=== PATIENT | female | born 1985 | race Hispanic/Latino ===

== ENCOUNTER 2016-12-03 16:56 | Emergency (ER) | payer OTHER, MEDICARE ==
[~2016-12-03] VITALS: Ht 162.6 cm; Wt 81.6 kg
[~2016-12-03 16:56] MED LIST: BENADRYL ALLERG25 MG; BIOTIN1000 MCG PO; CILOXAN5 ML OPH; CYCLOBENZAPRINE10 M1 PO; LIDOCAINE HCL V15 ML PO; NORCO 325 MG-51 TAB PO; NORFLEX100 MG PO; PERCOCET 5-3251 EACH PO; PREDNISONE10 MG PO; TRAMADOL HCL50 M1 PO; ULTRAM50 M1 PO; [UNRECOGNIZED DRUG - OTHER] PO
--- NOTE | 2016-12-03 17:43 | ED GENERAL ADULT ---
History of Present Illness General Chief Complaint: General Adult Stated Complaint: SENT BY CLINIC FOR EKG "MY HEART RATE IS FAST" Source: patient, old records Exam Limitations: no limitations Vital Signs & Intake/Output Vital Signs & Intake/Output Vital Signs Date Time Temp Pulse Resp B/P Pulse O2 O2 Flow FiO2 Ox Delivery Rate 12/03 1951 101.0 111 20 103/62 96 Room Air 12/03 1839 Room Air Room Air 12/03 1754 102.6 128 22 12/03 1709 100.4 133 20 124/90 97 Room Air ED Intake and Output 12/04 0000 12/03 1200 Intake Total 1000 Output Total Balance 1000 Intake, IV 1000 Patient 180 lb Weight Allergies Coded Allergies: ibuprofen (Intermediate, HIVES 05/28/16) Reconcile Medications Benzonatate 200 MG CAPSULE 1 CAP PO TID PRN cough Citalopram Hydrobromide (Citalopram HBr) 10 MG TABLET 1 TAB PO DAILY MENTAL HEALTH (Reported) Oseltamivir Phosphate (Tamiflu) 75 MG CAPSULE 1 CAP PO BID SUSPECTED FLU ( Reported) Pregabalin (Lyrica) 150 MG CAPSULE 1 CAP PO BID FIBROMYALGIA (Reported) Tylenol With Codeine (Tylenol With Codeine #3 Tablet) 300 MG-30 MG TABLET 1-2 TAB PO Q6 PRN pain/cough may cause drowsiness Triage Note: PT TO ED FROM [facility] FOR INCREASED HEART RATE. PT C/O BODY ACHES X 1.5 WEEKS. TEMP NOW 100.4. HEARTRATE 130-140'S. EKG DONE. Triage Nurses Notes Reviewed? yes : No Patient currently breastfeeds: No HPI: Patient is a 31-year-old female sent from the [facility] for evaluation of fevers and elevated heart rate. Patient reports that yesterday she began with body aches, fevers, nonproductive cough. Body aches are currently severe. Patient took Tylenol this morning with no improvement. Patient's fever between 102 and 103F. Patient was noted to have a temperature of 102.9F and a pulse rate of 148 bpm [facility] just prior to arrival. Patient reports positive sick contacts at home. Patient reports she has been able to eat and drink today. Denies vomiting or diarrhea. Patient has not received an influenza vaccination this year. (LUKASZ RIGGS,KATIE) Past History Travel History Traveled to [place] past 21 day No Medical History Any Pertinent Medical History? see below for history Neurological: vertigo, FIBROMYALGIA EENT: NONE Cardiovascular: NONE Respiratory: asthma, bronchitis Gastrointestinal: colitis, irritable bowel syndrome Hepatic: NONE Renal: URINARY TRACT INFECTIONS Musculoskeletal: NONE, FIBROMYALGIA Psychiatric: anxiety Endocrine: NONE Blood Disorders: NONE Cancer(s): NONE COMMERCIAL HVAC TECHNICIAN/Reproductive: endometriosis Surgical History Surgical History: appendectomy, , hysterectomy Psychosocial History Who do you live with Family Services at Home None What is your primary language Armenian Tobacco Use: Current Daily Use Daily Tobacco Use Amount/Type: => 5 Cigarettes daily ETOH Use: denies use Illicit Drug Use: denies illicit drug use Family History Hx Contributory? No (KATIE LOBATO) Review of Systems Review of Systems Constitutional: Reports: chills, fever, malaise. EENTM: Reports: nasal congestion. Respiratory: Reports: cough, short of breath. GI: Denies: abdominal pain, nausea, vomiting. Musculoskeletal: Reports: muscle pain. Skin: Reports: no symptoms. Neurological/Psychological: Reports: headache. Hematologic/Endocrine: Reports: no symptoms. Immunologic/Allergic: Reports: no symptoms. (KATIE LOBATO) Physical Exam Physical Exam General Appearance: well developed/nourished, alert, awake Head: atraumatic, normal appearance Eyes: Bilateral: normal appearance, PERRL, EOMI. Ears, Nose, Throat: normal pharynx, normal ENT inspection, hearing grossly normal Neck: normal inspection, supple, full range of motion Respiratory: normal breath sounds, no respiratory distress, lungs clear Cardiovascular: tachycardia, regular rhythm Gastrointestinal: soft, non-tender Back: normal inspection, normal range of motion Extremities: normal inspection, normal capillary refill, normal range of motion, no edema Neurologic/Psych: awake, alert, oriented x 3 Skin: intact, normal color, warm/dry Lymphatic: no anterior cervical gayathri Core Measures ACS in differential dx? No CVA/TIA Diagnosis: No Severe Sepsis Present: No Septic Shock Present: No (KATIE LOBATO) Progress Differential Diagnoses I considered the following diagnoses in my evaluation of the patient: Influenza, pneumonia, bronchitis, arrhythmia, electrolyte abnormality, sepsis Plan of Care: Orders Procedure Date/time Status COMPREHENSIVE METABOLIC PANEL 12/03 1800 Complete CBC WITHOUT DIFFERENTIAL 12/03 1800 Complete RAPID VIRAL INFLUENZA A 12/03 1754 Complete EKG 02/13 1658 Active Laboratory Tests 12/03/16 1830: Anion Gap 11, Estimated GFR > 60, BUN/Creatinine Ratio 8.8, Glucose 83, Calcium 9.2, Total Bilirubin 0.4, AST 21, ALT 31, Alkaline Phosphatase 54, Total Protein 7.0, Albumin 4.2, Globulin 2.8, Albumin/Globulin Ratio 1.5, CBC w Diff NO MAN DIFF REQ, RBC 5.02, MCV 86.6, MCH 29.0, RDW 14.4, MPV 8.7, Gran % 78.3 H, Lymphocytes % 11.6 L, Monocytes % 9.9 H, Eosinophils % 0, Basophils % 0.2, Absolute Granulocytes 5.4, Absolute Lymphocytes 0.8 L, Absolute Monocytes 0.7 H, Absolute Eosinophils 0, Absolute Basophils 0, PUBS MCHC 33.6 12/03/2016 7:04:07 PM: Results discussed with patient. Patient nontoxic appearing, tolerating oral intake. Sinus tachycardia likely from fever and viral process. (KATIE LOBATO) Initial ED EKG: sinus tachycardia 142 bpm normal axis, normal intervals, no acute ST/T-wave changes (KATIE LOBATO) Departure Departure Disposition: HOME OR SELF CARE Condition: Stable Clinical Impression Primary Impression: Influenza-like illness Referrals: PAMELA SAL (PCP/Family) Additional Instructions: Drink plenty fluids and rest. Take the Tamiflu as previously directed by her primary doctor. Follow-up with her primary doctor within 1 week for recheck. Return to the emergency department if unable to stay hydrated or worsening of symptoms. Departure Forms: Customer Survey General Discharge Information Prescriptions: Current Visit Scripts Tylenol With Codeine (Tylenol With Codeine #3 Tablet) 1-2 TAB PO Q6 PRN pain/ cough #15 TAB may cause drowsiness Benzonatate 1 CAP PO TID PRN cough #30 CAP (KATIE LOBATO) PA/SIZING MACHINE OPERATOR Co-Sign Statement Statement: ED Attending supervision documentation- [] I saw and evaluated the patient. I have also reviewed all the pertinent lab results and diagnostic results. I agree with the findings and the plan of care as documented in the PA's/SIZING MACHINE OPERATOR's documentation. [X] I have reviewed the ED Record and agree with the PA's/SIZING MACHINE OPERATOR's documentation. [] Additions or exceptions (if any) to the PAs/SIZING MACHINE OPERATOR's note and plan are summarized below: [] (SOPHIA THOMPSON,MICHEAL Barnett) Critical Care Note Critical Care Note Critical Care Time: non-applicable (LUKASZ RIGGS,KATIE)
[2016-12-03 18:47] LABS: ABSOLUTE BASOPHIL COUNT 0 /CUMM (0.0-0.2); ABSOLUTE EOSINOPHIL COUNT 0 /CUMM (0.0-0.7); ABSOLUTE GRANULOCYTE CT 5.4 /CUMM (1.4-6.5); ABSOLUTE LYMPH COUNT 0.8 /CUMM (1.2-3.4); ABSOLUTE MONOCYTE COUNT 0.7 /CUMM (0.10-0.60); BASOPHIL % 0.2 % (0.0-2.0); EOSINOPHIL % 0 % (0-5); GRANULOCYTE % 78.3 % (42.2-75.2); HEMATOCRIT 43.4 % (37-47); MEAN CORPUSCULAR HGB CONC 33.6 G/DL (33.0-37.0); MEAN CORPUSCULAR VOLUME 86.6 FL (81.0-99.0); MEAN PLATELET VOLUME 8.7 FL (7.4-10.4); PLATELET COUNT 252 /CUMM (130-400); RBC DISTRIBUTION WIDTH 14.4 % (11.5-14.5); RED BLOOD CELL CT 5.02 /CUMM (4.20-5.40); WHITE BLOOD CELL COUNT 6.9 /CUMM (4.8-10.8)
[2016-12-03] MEDS ORDERED: LYRICA150 M1 PO (18:54)
[2016-12-03] MEDS ORDERED: CITALOPRAM HBR10 MG PO (18:54)
[2016-12-03] MEDS ORDERED: TAMIFLU75 M1 PO (18:55)
[2016-12-03] MEDS ORDERED: TYLENOL WITH C1 EACH PO (19:29)
[2016-12-03] MEDS ORDERED: BENZONATATE200 M1 PO (19:29)
[2016-12-03 19:52] VITALS: BP 103/62
== END 2016-12-03 20:01 ==
LOC: ERH 16:56
PROVIDERS: Physician Assistant
DX: R50.9 Fever, unspecified (principal)
CPT/HCPCS: 87804; 87804-59; 93005; 93010; 96360

== ENCOUNTER 2016-12-31 09:59 | Emergency (ER) | payer OTHER, MEDICARE ==
[~2016-12-31] VITALS: Ht 162.6 cm; Wt 79.4 kg
[~2016-12-31 09:59] MED LIST changes: +BENZONATATE200 M1 PO; +CITALOPRAM HBR10 MG PO; +LYRICA150 M1 PO; +TAMIFLU75 M1 PO; +TYLENOL WITH C1 EACH PO
[2016-12-31 10:20] LABS: ABSOLUTE BASOPHIL COUNT 0 /CUMM (0.0-0.2); ABSOLUTE EOSINOPHIL COUNT 0 /CUMM (0.0-0.7); ABSOLUTE GRANULOCYTE CT 7.6 /CUMM (1.4-6.5); ABSOLUTE LYMPH COUNT 2.8 /CUMM (1.2-3.4); ABSOLUTE MONOCYTE COUNT 0.4 /CUMM (0.10-0.60); BASOPHIL % 0.3 % (0.0-2.0); EOSINOPHIL % 0.2 % (0-5); GRANULOCYTE % 70.3 % (42.2-75.2); HEMATOCRIT 43.6 % (37-47); MEAN CORPUSCULAR HGB CONC 33.9 G/DL (33.0-37.0); MEAN CORPUSCULAR VOLUME 85.7 FL (81.0-99.0); MEAN PLATELET VOLUME 7.8 FL (7.4-10.4); PLATELET COUNT 310 /CUMM (130-400); RBC DISTRIBUTION WIDTH 14.8 % (11.5-14.5); RED BLOOD CELL CT 5.09 /CUMM (4.20-5.40); WHITE BLOOD CELL COUNT 10.8 /CUMM (4.8-10.8)
--- NOTE | 2016-12-31 10:24 | ED GI/GU/ABDOMINAL COMPLAINT ---
History of Present Illness General Chief Complaint: Abdominal Pain/Flank Pain Stated Complaint: L FLANK PAIN Source: patient Exam Limitations: no limitations Vital Signs & Intake/Output Vital Signs & Intake/Output Vital Signs Date Time Temp Pulse Resp B/P Pulse O2 O2 Flow FiO2 Ox Delivery Rate 12/31 1542 98.1 90 18 106/77 98 Room Air 12/31 1007 97.3 82 20 114/76 97 Room Air Allergies Coded Allergies: ibuprofen (Intermediate, HIVES 05/28/16) Triage Note: PT PRESENTS TO ER C/O OF LLQ ABDOMINAL PAIN. PT STATES PAIN STARTED YESTERDAY. PT STATES PAIN IS WORSE WITH MOVEMENT. PT ALSO C/O OF NAUSEA Triage Nurses Notes Reviewed? yes ? N Is pt currently ? No Onset: Gradual Duration: hour(s): (12) Timing: remote history Quality/Severity: stabbing Severity Numbers: 8 Location: left flank, left lower quadrant Radiation: no radiation Activities at Onset: none Prior Abdominal Problems: similar symptoms Past Sexual History: Unobtainable at this time Modifying Factors: Worsens With: movement, palpation. Associated Symptoms: NAUSEA HPI: Patient is a 31-year-old female with history of fibromyalgia, ovarian cyst presenting to the emergency department with chief complaint of left lower quadrant and left flank pain beginning yesterday. Movement makes the pain worse. She also reports associated nausea but no vomiting. No diarrhea. Denies any blood in the stool. Denies any urinary frequency or urgency or dysuria. No fevers or chills. She reports that she took Tylenol with a small amount of relief. No recent antibiotic use. (LANDY RIGGS,NIKIA) Reconcile Medications Benzonatate 200 MG CAPSULE 1 CAP PO TID PRN cough Citalopram Hydrobromide (Citalopram HBr) 10 MG TABLET 1 TAB PO DAILY MENTAL HEALTH (Reported) Oseltamivir Phosphate (Tamiflu) 75 MG CAPSULE 1 CAP PO BID SUSPECTED FLU ( Reported) Oxycodone HCl/Acetaminophen (Percocet 5-325 MG Tablet) 5 MG-325 MG TABLET 1 TAB PO TID PRN PAIN Pregabalin (Lyrica) 150 MG CAPSULE 1 CAP PO BID FIBROMYALGIA (Reported) Tylenol With Codeine (Tylenol With Codeine #3 Tablet) 300 MG-30 MG TABLET 1-2 TAB PO Q6 PRN pain/cough may cause drowsiness (MARILEE MORENO DO) Past History Travel History Traveled to [place] past 21 day No Medical History Any Pertinent Medical History? see below for history Neurological: vertigo, FIBROMYALGIA EENT: NONE Cardiovascular: NONE Respiratory: asthma, bronchitis Gastrointestinal: colitis, irritable bowel syndrome Hepatic: NONE Renal: URINARY TRACT INFECTIONS Musculoskeletal: NONE, FIBROMYALGIA Psychiatric: anxiety Endocrine: NONE Blood Disorders: NONE Cancer(s): NONE MANAGER DIVERSITY/Reproductive: endometriosis Surgical History Surgical History: appendectomy, , hysterectomy Psychosocial History Who do you live with Family Services at Home None What is your primary language Armenian Tobacco Use: Never used Family History Hx Contributory? No (NIKIA LYNCH) Review of Systems Review of Systems Constitutional: Reports: no symptoms. Comments Review of systems: See HPI, All other systems negative. Constitutional, no chills fever or weight loss HEENT: No visual changes no sore throat no congestion Cardiovascular: No chest pain ,palpitation , orthopnea Skin, no jaundice no rashes Respiratory: No dyspnea cough sputum or hemoptysis GI: no vomiting : No dysuria No hematuria Muscle skeletal: no back pain, no neck pain, Neurologic: No numbness no confusion NO URRUTIA Psych: No stress anxiety or depression,. Heme/endocrine: No bruising no bleeding no polyuria or polydipsia Immunology: No splenectomy or history of AIDS (NIKIA LYNCH) Physical Exam Physical Exam General Appearance: well developed/nourished, no apparent distress, alert, awake , comfortable Gastrointestinal: normal bowel sounds, soft, tenderness Comments: Well-developed well-nourished person in MILD DISTRESS HEENT: Normal EENT exam, extraocular motion intact, no nystagmus. Pupils equally round and reactive to light and accommodation. Nose is atraumatic. External auditory canal and Tympanic membranes clear. Pharynx normal. No swelling or edema. Neck: Supple, no lymphadenopathy, normal range of motion without pain or tenderness Back: Nontender, no CVA tenderness. Cardiovascular: Regular rate and rhythms no murmurs rubs or gallops, normal JVP Respiratory: Chest nontender. No respiratory distress.breath sounds clear to auscultation bilaterally Abdomen: Soft, TENDER TO PALPATION IN LLQ,NO REBOUND TENDERNESS, MILD GARUDING, nondistended, no appreciable organomegaly. Normal bowel sounds. No ascites Extremity: No edema Neuro: Alert oriented x3 Skin: No appreciable rash on exposed skin, skin is warm and dry. Psych: Mood and affect is normal, memory and judgment is normal. Core Measures ACS in differential dx? No Severe Sepsis Present: No Septic Shock Present: No (LANDY RIGGS,NIKIA) Progress Differential Diagnosis: ovarian cyst, ovarian torsion, UTI/pyelo, KINDEY STONE, DIVERTICULTIS, SBO, OVARIAN CYST UTI, PYELO, HYDRO, OVARIAN TORSION Plan of Care: Orders Procedure Date/time Status URINALYSIS 12/31 1023 Complete COMPREHENSIVE METABOLIC PANEL 12/31 1009 Complete CBC WITHOUT DIFFERENTIAL 12/31 1009 Complete Laboratory Tests 12/31/16 1250: Urine Color YEL, Urine Clarity CLEAR, Urine pH 6.0, Ur Specific [place] <= 1.005 , Urine Protein NEG, Urine Ketones NEG, Urine Nitrite NEG, Urine Bilirubin NEG, Urine Urobilinogen 0.2, Ur Leukocyte Esterase NEG, Ur Microscopic EXAM NOT REQUIRED, Urine Hemoglobin NEG, Urine Glucose NEG 12/31/16 1011: Anion Gap 11, Estimated GFR > 60, BUN/Creatinine Ratio 15.7, Glucose 107 H, Calcium 10.1, Total Bilirubin 0.4, AST 16, ALT 21, Alkaline Phosphatase 62, Total Protein 7.2, Albumin 4.3, Globulin 2.9, Albumin/Globulin Ratio 1.5, CBC w Diff NO MAN DIFF REQ, RBC 5.09, MCV 85.7, MCH 29.0, RDW 14.8 H, MPV 7.8, Gran % 70.3, Lymphocytes % 25.8, Monocytes % 3.4, Eosinophils % 0.2, Basophils % 0.3, Absolute Granulocytes 7.6 H, Absolute Lymphocytes 2.8, Absolute Monocytes 0.4, Absolute Eosinophils 0, Absolute Basophils 0, PUBS MCHC 33.9 Diagnostic Imaging: Viewed by Me: CT Scan, Ultrasound. Discussed w/RAD: CT Scan, Ultrasound. Radiology Impression: PATIENT: TOR ANTON PRESENT AGE: 31 PATIENT ACCOUNT NO: [id number] : 83 LOCATION: [facility] ORDERING PHYSICIAN: NIKIA RIGGS SERVICE DATE: 12/31/16-1258 EXAM TYPE: US - US-TRANSVAGINAL EXAMINATION: PELVIC ULTRASOUND TRANSABDOMINAL AND TRANSVAGINAL CLINICAL INFORMATION: Left lower quadrant abdominal pain. Evaluate for ovarian torsion. Status post partial hysterectomy 2011. Endometriosis. COMPARISON: CT scan of the abdomen and pelvis 12/31/2016. TECHNIQUE: Multiple grayscale and duplex images of the pelvis were obtained by a skilled glass laminating operator utilizing transabdominal and transvaginal technique with a high-frequency transducer array. FINDINGS: The uterus is surgically absent. The right ovary measures 2.7 x 1.8 x 2.0 cm with an estimated volume of 5.3 mL. The left ovary measures 4.2 x 3.8 x 4.0 cm with an estimated volume of 38.2 cm. There are multiple left ovarian cysts. The dominant cyst measures 3.3 cm in maximal diameter. There are normal arterial and venous waveforms within both ovaries. No evidence of ovarian torsion. No pelvic fluid. IMPRESSION: The uterus is surgically absent. There is a complex left adnexal cyst. Duplex imaging reveals normal arterial and venous flow within both ovaries. No evidence of ovarian torsion., PATIENT: TOR ANTON PRESENT AGE: 31 PATIENT ACCOUNT NO: [id number] : 83 LOCATION: [facility] ORDERING PHYSICIAN: NIKIA RIGGS SERVICE DATE: 12/31/16 EXAM TYPE: CAT - CT ABD & PELVIS W IV CONTRAST EXAMINATION: CT ABDOMEN AND PELVIS WITH CONTRAST CLINICAL INFORMATION: Left lower quadrant abdominal pain. Evaluate for diverticulitis and/or ovarian cyst. COMPARISON: CT abdomen and pelvis from 06/04/2015 TECHNIQUE: Multidetector volumetric imaging was performed of the abdomen and pelvis before and after the IV administration of 94 mL of Optiray 320 intravenous contrast. Sagittal and coronal reformatted images were obtained on the technologist's workstation. DLP: 399.94 mGy-cm FINDINGS: LUNG BASES: The visualized lung bases are unremarkable. LIVER, GALLBLADDER, AND BILIARY TREE: Liver has normal size, contour and attenuation. There appears to be interval improvement in hepatic steatosis compared to 2014. There is mild steatosis in the left hepatic lobe adjacent to the falciform ligament. No suspicious hepatic lesion or intrahepatic bile duct dilatation. Gallbladder is unremarkable. PANCREAS: Unremarkable. SPLEEN: Unremarkable. ADRENAL GLANDS: Unremarkable. KIDNEYS AND URETERS: The kidneys are normal in size, shape, and attenuation. No hydronephrosis, hydroureter, or calculi seen. No perinephric stranding. BLADDER: Unremarkable. GASTROINTESTINAL TRACT: Stomach is unremarkable. Bowel loops are normal in caliber. Appendix is surgically absent. No evidence of acute inflammation or obstruction along the gastrointestinal tract. No ascites or pneumoperitoneum. ABDOMINAL WALL: No abdominal wall hernia. LYMPH NODES: No pathologic sized lymph nodes within the abdomen or pelvis. VASCULAR: Abdominal aorta is normal in caliber and the celiac trunk, SMA, RAJENDRA and renal arteries are widely patent. PELVIC VISCERA: Patient is status post partial hysterectomy. A septated cyst of the left ovary measures approximately 4 x 4.1 x 4.6 cm, compared to 5.4 x 5 x 6.2 cm on 06/04/2015. The right ovary is unremarkable. No pelvic free fluid. OSSEOUS STRUCTURES: Transitional lumbosacral anatomy; the hypertrophied L5 spinous processes articulate with the sacrum. At T10-T11, there is chronic degenerative disc space narrowing, discogenic vertebral sclerosis and anterior traction osteophyte formation. IMPRESSION: 1. No acute findings along the gastrointestinal tract. 2. Complex, septated cyst of the left ovary measures 4 x 4.1 x 4.6 cm, compared to 5.4 x 5 x 6.2 cm on 06/04/2015. In this patient with left lower abdominal pain, pelvic ultrasound performed with ovarian Doppler imaging may be helpful to further characterize the adnexal cyst. The decreased size relative to 06/04/2015 suggests that this is likely a benign lesion. DICTATED BY: HAJA PHIPPS MD DATE/TIME DICTATED:12/31/161242 BOTTLE HOUSE QUALITY CONTROL TECHNICIAN:ISABEL DATE/TIME TRANSCRIBED:12/31/161242 CONFIDENTIAL, DO NOT COPY WITHOUT APPROPRIATE AUTHORIZATION. <Electronically signed in Other Vendor System> SIGNED BY: HAJA PHIPPS MD 12/31/16 1257 Initial ED EKG: none Comments: 12/31/2016 11:45:59 AM and I'll patient is afebrile no acute distress at the reproducible left lower quadrant pain without guarding or rebound tenderness. Patient is well-appearing. Patient will be medicated with fluids and pain medication. We will assess CBC, CMP. Considering diverticulitis although no diarrhea. This could be an exacerbation of chronic pain from ovarian cyst. No chance of as patient has had her tubes tied. 12/31/2016 3:05:44 PM patient informed of all of her results and imaging study results. Likely ovarian cyst. She'll be treated for pain with pain medication and follow-up with AUTO DESIGN DETAILER. Patient nontoxic. No signs of ovarian torsion. (LANDY RIGGS,NIKIA) Departure Departure Time of Disposition: 1506 Disposition: HOME OR SELF CARE Condition: Stable Clinical Impression Primary Impression: Ovarian cyst Qualifiers: Laterality: left Qualified Code: N83.202 - Unspecified ovarian cyst , left side Referrals: PAMELA SAL (PCP/Family) Additional Instructions: Follow-up with your AUTO DESIGN DETAILER consummate appointment. Increase fluids. Take Percocet as prescribed for pain. Return for worsening symptoms or concerns. AttacheD ARE YOUR CT results. PATIENT: TOR ANTON PRESENT AGE: 31 PATIENT ACCOUNT NO: [id number] : 83 LOCATION: [facility] ORDERING PHYSICIAN: NIKIA RIGGS SERVICE DATE: 12/31/16 EXAM TYPE: CAT - CT ABD & PELVIS W IV CONTRAST EXAMINATION: CT ABDOMEN AND PELVIS WITH CONTRAST CLINICAL INFORMATION: Left lower quadrant abdominal pain. Evaluate for diverticulitis and/or ovarian cyst. COMPARISON: CT abdomen and pelvis from 06/04/2015 TECHNIQUE: Multidetector volumetric imaging was performed of the abdomen and pelvis before and after the IV administration of 94 mL of Optiray 320 intravenous contrast. Sagittal and coronal reformatted images were obtained on the technologist's workstation. DLP: 399.94 mGy-cm FINDINGS: LUNG BASES: The visualized lung bases are unremarkable. LIVER, GALLBLADDER, AND BILIARY TREE: Liver has normal size, contour and attenuation. There appears to be interval improvement in hepatic steatosis compared to 06/04/2015. There is mild steatosis in the left hepatic lobe adjacent to the falciform ligament. No suspicious hepatic lesion or intrahepatic bile duct dilatation. Gallbladder is unremarkable. PANCREAS: Unremarkable. SPLEEN: Unremarkable. ADRENAL GLANDS: Unremarkable. KIDNEYS AND URETERS: The kidneys are normal in size, shape, and attenuation. No hydronephrosis, hydroureter, or calculi seen. No perinephric stranding. BLADDER: Unremarkable. GASTROINTESTINAL TRACT: Stomach is unremarkable. Bowel loops are normal in caliber. Appendix is surgically absent. No evidence of acute inflammation or obstruction along the gastrointestinal tract. No ascites or pneumoperitoneum. ABDOMINAL WALL: No abdominal wall hernia. LYMPH NODES: No pathologic sized lymph nodes within the abdomen or pelvis. VASCULAR: Abdominal aorta is normal in caliber and the celiac trunk, SMA, RAJNEDRA and renal arteries are widely patent. PELVIC VISCERA: Patient is status post partial hysterectomy. A septated cyst of the left ovary measures approximately 4 x 4.1 x 4.6 cm, compared to 5.4 x 5 x 6.2 cm on 06/04/2015. The right ovary is unremarkable. No pelvic free fluid. OSSEOUS STRUCTURES: Transitional lumbosacral anatomy; the hypertrophied L5 spinous processes articulate with the sacrum. At T10-T11, there is chronic degenerative disc space narrowing, discogenic vertebral sclerosis and anterior traction osteophyte formation. IMPRESSION: 1. No acute findings along the gastrointestinal tract. 2. Complex, septated cyst of the left ovary measures 4 x 4.1 x 4.6 cm, compared to 5.4 x 5 x 6.2 cm on 06/04/2015. In this patient with left lower abdominal pain, pelvic ultrasound performed with ovarian Doppler imaging may be helpful to further characterize the adnexal cyst. The decreased size relative to 06/04/2015 suggests that this is likely a benign lesion. DICTATED BY: HAJA PHIPPS MD DATE/TIME DICTATED:12/31/161242 BOTTLE HOUSE QUALITY CONTROL TECHNICIAN:ISABEL DATE/TIME TRANSCRIBED:12/31/161242 CONFIDENTIAL, DO NOT COPY WITHOUT APPROPRIATE AUTHORIZATION. <Electronically signed in Other Vendor System> SIGNED BY: HAJA PHIPPS MD 12/31/16 1257 Departure Forms: Customer Survey General Discharge Information Prescriptions: Current Visit Scripts Oxycodone HCl/Acetaminophen (Percocet 5-325 MG Tablet) 1 TAB PO TID PRN PAIN #10 TAB (NIKIA LYNCH) PA/FINANCIAL SERVICES ASSOCIATE Co-Sign Statement Statement: ED Attending supervision documentation- [] I saw and evaluated the patient. I have also reviewed all the pertinent lab results and diagnostic results. I agree with the findings and the plan of care as documented in the PA's/FINANCIAL SERVICES ASSOCIATE's documentation. [X] I have reviewed the ED Record and agree with the PA's/FINANCIAL SERVICES ASSOCIATE's documentation. [] Additions or exceptions (if any) to the PAs/FINANCIAL SERVICES ASSOCIATE's note and plan are summarized below: [] (MARILEE MORENO DO
--- NOTE | 2016-12-31 12:57 | CT SCAN REPORT ---
EXAMINATION: CT ABDOMEN AND PELVIS WITH CONTRAST CLINICAL INFORMATION: Left lower quadrant abdominal pain. Evaluate for diverticulitis and/or ovarian cyst. COMPARISON: CT abdomen and pelvis from 06/04/2015 TECHNIQUE: Multidetector volumetric imaging was performed of the abdomen and pelvis before and after the IV administration of 94 mL of Optiray 320 intravenous contrast. Sagittal and coronal reformatted images were obtained on the technologist's workstation. DLP: 399.94 mGy-cm FINDINGS: LUNG BASES: The visualized lung bases are unremarkable. LIVER, GALLBLADDER, AND BILIARY TREE: Liver has normal size, contour and attenuation. There appears to be interval improvement in hepatic steatosis compared to 06/04/2015. There is mild steatosis in the left hepatic lobe adjacent to the falciform ligament. No suspicious hepatic lesion or intrahepatic bile duct dilatation. Gallbladder is unremarkable. PANCREAS: Unremarkable. SPLEEN: Unremarkable. ADRENAL GLANDS: Unremarkable. KIDNEYS AND URETERS: The kidneys are normal in size, shape, and attenuation. No hydronephrosis, hydroureter, or calculi seen. No perinephric stranding. BLADDER: Unremarkable. GASTROINTESTINAL TRACT: Stomach is unremarkable. Bowel loops are normal in caliber. Appendix is surgically absent. No evidence of acute inflammation or obstruction along the gastrointestinal tract. No ascites or pneumoperitoneum. ABDOMINAL WALL: No abdominal wall hernia. LYMPH NODES: No pathologic sized lymph nodes within the abdomen or pelvis. VASCULAR: Abdominal aorta is normal in caliber and the celiac trunk, SMA, RAJENDRA and renal arteries are widely patent. PELVIC VISCERA: Patient is status post partial hysterectomy. A septated cyst of the left ovary measures approximately 4 x 4.1 x 4.6 cm, compared to 5.4 x 5 x 6.2 cm on 06/04/2015. The right ovary is unremarkable. No pelvic free fluid. OSSEOUS STRUCTURES: Transitional lumbosacral anatomy; the hypertrophied L5 spinous processes articulate with the sacrum. At T10-T11, there is chronic degenerative disc space narrowing, discogenic vertebral sclerosis and anterior traction osteophyte formation. IMPRESSION: 1. No acute findings along the gastrointestinal tract. 2. Complex, septated cyst of the left ovary measures 4 x 4.1 x 4.6 cm, compared to 5.4 x 5 x 6.2 cm on 06/04/2015. In this patient with left lower abdominal pain, pelvic ultrasound performed with ovarian Doppler imaging may be helpful to further characterize the adnexal cyst. The decreased size relative to 06/04/2015 suggests that this is likely a benign lesion.
--- NOTE | 2016-12-31 14:47 | ULTRASOUND REPORT ---
EXAMINATION: PELVIC ULTRASOUND TRANSABDOMINAL AND TRANSVAGINAL CLINICAL INFORMATION: Left lower quadrant abdominal pain. Evaluate for ovarian torsion. Status post partial hysterectomy 2011. Endometriosis. COMPARISON: CT scan of the abdomen and pelvis 12/31/2016. TECHNIQUE: Multiple grayscale and duplex images of the pelvis were obtained by a skilled mink slicer utilizing transabdominal and transvaginal technique with a high-frequency transducer array. FINDINGS: The uterus is surgically absent. The right ovary measures 2.7 x 1.8 x 2.0 cm with an estimated volume of 5.3 mL. The left ovary measures 4.2 x 3.8 x 4.0 cm with an estimated volume of 38.2 cm. There are multiple left ovarian cysts. The dominant cyst measures 3.3 cm in maximal diameter. There are normal arterial and venous waveforms within both ovaries. No evidence of ovarian torsion. No pelvic fluid. IMPRESSION: The uterus is surgically absent. There is a complex left adnexal cyst. Duplex imaging reveals normal arterial and venous flow within both ovaries. No evidence of ovarian torsion.
[2016-12-31] MEDS ORDERED: PERCOCET 5-3251 EACH PO (15:08)
[2016-12-31 15:42] VITALS: BP 106/77
== END 2016-12-31 15:42 ==
LOC: ERH 09:59
PROVIDERS: Emergency Medicine
DX: N83.202 Unspecified ovarian cyst, left side (principal)
CPT/HCPCS: 74177; 81003; 81025; 96374; 96375; J2405